=== PATIENT | male | born 1940 | race Caucasian/White ===

== ENCOUNTER 2022-05-12 17:34 | Inpatient (IN) | payer MEDICARE ==
[2022-05-12 18:43] VITALS: BMI 27.0
[2022-05-12] MEDS ORDERED: Nitroglycerin 0.4 MG TAB (25 Tab Bottle) SL PRN (19:53)
[2022-05-12] MEDS ORDERED: Acetaminophen 325 MG TAB PO PRN (19:59)
[2022-05-12] MEDS ORDERED: Lisinopril 10 MG TAB PO SCH (20:00)
[2022-05-12] MEDS ORDERED: Nitroglycerin 2% Ointment 1 INCH/1 GM Packet TOP SCH (20:15)
[2022-05-12] MEDS: Apixaban 2.5 MG TAB PO SCH (20:32)
[2022-05-12] MEDS: hydrOXYzine Pamoate 25 mg Capsule PO SCH (20:38)
[2022-05-12] MEDS ORDERED: Dutasteride 0.5 MG CAP PO SCH (21:00)
[2022-05-12] MEDS ORDERED: Atorvastatin Calcium 20 MG TAB PO SCH (21:00)
[2022-05-12 21:20] LABS: Magnesium 1.9 mg/dL (1.6-2.6)
[2022-05-12 21:26] LABS: Troponin I 0.267 ng/mL (< 0.028)
[2022-05-12] MEDS: Sotalol HCl 80 MG TAB PO SCH ×2 (21:28→21:29)
[2022-05-12 23:44] LABS: Troponin I 0.231 ng/mL (< 0.028)
[2022-05-13 04:43] LABS: Anion Gap 12 mmol/L (10-20); BUN (Urea Nitrogen) 23 mg/dL (8.4-25.7); Calc. Creatinine Clearance 71 mL/min (70-130); Carbon Dioxide 25 mmol/L (23-31); Cardiac Risk 2.4 (Less than 4.5); Chloride 107 mmol/L (98-107); Cholesterol 91 mg/dl (< 200 Desired); Estimated GFR 71; Glucose 79 mg/dL (83-110); HDL Cholesterol 38 mg/dL (>60 Neg Risk); LDL Cholesterol, Calculated 41 mg/dL; Potassium 4.2 mmol/L (3.5-5.1); Sodium 140 mmol/L (136-145); Triglycerides 59 mg/dL (Less than 150)
[2022-05-13 04:45] LABS: #Basophils 0.1 10x3/uL (0.0-0.2); #Eosinphils 0.1 10x3/uL (0.0-0.5); #Monocytes 0.7 10x3/uL (0.0-1.1); #Neutrophils 2.2 10x3/uL (1.5-8.4); %Eosinophils 2.5 % (0.0-6.0); %Lymphocytes 39.9 % (18.0-47.0); %Monocytes 13.4 % (0.0-10.0); Hemoglobin 13.2 g/dL (13.5-17.5); Mean Corpuscular HGB CONC 32.5 g/dL (32.0-36.0); Mean Corpuscular Hemoglobin 30.5 pg (27.0-33.0); Mean Corpuscular Volume 93.8 fl (81.2-95.1); Mean Platelet Volume 10.1 fl (7.4-10.4); Platelet Count 132 10x3/uL (150-450); RBC Distribution Width 12.4 % (11.5-14.5); Red Blood Cell (RBC) Count 4.33 10x6/uL (4.32-5.72); White Blood Cell (WBC) Count 5.1 10x3/uL (3.5-10.5)
[2022-05-13] MEDS: Nitroglycerin 2% Ointment 1 INCH/1 GM Packet TOP SCH ×2 (05:57→16:43)
[2022-05-13] MEDS ORDERED: Polyethylene Glycol 3350 17 GM Packet PO SCH (09:00)
[2022-05-13] MEDS ORDERED: Lisinopril 10 MG TAB PO SCH (09:00)
[2022-05-13] MEDS ORDERED: Aspirin Chewable 81 MG TAB PO SCH (09:00)
[2022-05-13] MEDS: Sotalol HCl 80 MG TAB PO SCH ×3 (10:15→10:18)
[2022-05-13] MEDS: Apixaban 2.5 MG TAB PO SCH (10:17)
[2022-05-13] MEDS: hydrOXYzine Pamoate 25 mg Capsule PO SCH (10:21)
[2022-05-13 13:04] LABS: Hemoglobin A1c 6.1 % (4.0-6.0)
[2022-05-13 17:26] VITALS: BP 125/73; TEMP 97.5
[2022-05-13] MEDS ORDERED: Atorvastatin Calcium 40 MG TAB PO SCH (21:00)
== END 2022-05-13 18:00 | disposition home or self-care (01) | DRG 282 ==
LOC: CSHTELE 17:34 → OBSVTOIN 19:43
PROVIDERS: ADMIT Internal Medicine; ATTEND Internal Medicine
DX: R00.0 Tachycardia, unspecified (principal); I21.A1 Myocardial infarction type 2; Z20.822 Contact with and (suspected) exposure to COVID-19; I25.10 Atherosclerotic heart disease of native coronary artery without angina pectoris; I48.91 Unspecified atrial fibrillation; E78.5 Hyperlipidemia, unspecified; I10 Essential (primary) hypertension; R73.03 Prediabetes; K21.9 Gastro-esophageal reflux disease without esophagitis; N40.0 Benign prostatic hyperplasia without lower urinary tract symptoms; Z95.0 Presence of cardiac pacemaker; Z95.1 Presence of aortocoronary bypass graft; Z95.5 Presence of coronary angioplasty implant and graft; Z88.2 Allergy status to sulfonamides; Z88.8 Allergy status to other drugs, medicaments and biological substances; Z79.899 Other long term (current) drug therapy; I25.2 Old myocardial infarction; Z98.49 Cataract extraction status, unspecified eye; Z87.891 Personal history of nicotine dependence; Z80.3 Family history of malignant neoplasm of breast; Z80.1 Family history of malignant neoplasm of trachea, bronchus and lung
CPT/HCPCS: 36415; 80048; 80061; 83036; 83735; 85025; 93005; 93010; 93306; 97139; Q0177; U0003; U0005

== ENCOUNTER 2022-05-27 11:47 | Inpatient (IN) | payer MEDICARE ==
[2022-05-27] MEDS ORDERED: Nitroglycerin 2% Ointment 1 INCH/1 GM Packet ONE (12:39)
[2022-05-27 13:26] LABS: CKMB 2.3 ng/mL (0-6.6)
[2022-05-27 15:50] LABS: Troponin I 0.044 ng/mL (< 0.028)
[2022-05-27] MEDS ORDERED: Ondansetron ODT 4 MG TAB PO PRN (16:04)
[2022-05-27 17:53] VITALS: BMI 27.7
[2022-05-27 19:05] LABS: Troponin I 0.044 ng/mL (< 0.028)
[2022-05-27] MEDS: Acetaminophen 325 MG TAB PO PRN (21:46)
[2022-05-28 04:49] LABS: #Basophils 0.1 10x3/uL (0.0-0.2); #Eosinphils 0.2 10x3/uL (0.0-0.5); #Monocytes 0.9 10x3/uL (0.0-1.1); %Eosinophils 2.1 % (0.0-6.0); %Lymphocytes 27.6 % (18.0-47.0); %Monocytes 12.5 % (0.0-10.0); %Neutrophils 56.7 % (40.0-75.0); Hemoglobin 12.9 g/dL (13.5-17.5); Mean Corpuscular HGB CONC 32.7 g/dL (32.0-36.0); Mean Corpuscular Hemoglobin 30.8 pg (27.0-33.0); Mean Corpuscular Volume 94.3 fl (81.2-95.1); Mean Platelet Volume 10.3 fl (7.4-10.4); Platelet Count 170 10x3/uL (150-450); RBC Distribution Width 12.6 % (11.5-14.5); Red Blood Cell (RBC) Count 4.19 10x6/uL (4.32-5.72); White Blood Cell (WBC) Count 7.1 10x3/uL (3.5-10.5)
[2022-05-28 04:56] LABS: ALT (SGPT) 12 U/L (8-55); AST (SGOT) 15 U/L (5-34); Albumin 3.3 g/dL (3.4-4.8); Alkaline Phosphatase 70 U/L (40-110); Anion Gap 13 mmol/L (10-20); BUN (Urea Nitrogen) 23 mg/dL (8.4-25.7); Bilirubin, Total 1.2 mg/dL (0.2-1.2); Calc. Creatinine Clearance 66 mL/min (70-130); Calcium 9.1 mg/dL (7.8-10.44); Carbon Dioxide 26 mmol/L (23-31); Chloride 106 mmol/L (98-107); Estimated GFR 62; Globulin 2.8 g/dL (2.4-3.5); Glucose 90 mg/dL (83-110); Potassium 4.8 mmol/L (3.5-5.1); Protein, Total 6.1 g/dL (5.8-8.1); Sodium 140 mmol/L (136-145)
[2022-05-28] MEDS: Acetaminophen 325 MG TAB PO PRN ×2 (05:56→09:34)
[2022-05-28] MEDS: Furosemide 20 MG/2 ML VIAL SLOW IVP SCH ×2 (05:58→13:40)
[2022-05-28] MEDS ORDERED: Carvedilol 6.25 MG TAB PO SCH (09:00)
[2022-05-28] MEDS: Aspirin Chewable 81 MG TAB PO SCH (09:34)
[2022-05-28] MEDS ORDERED: Apixaban 5 MG TAB PO SCH (10:30)
[2022-05-28] MEDS ORDERED: Sotalol HCl 80 MG TAB PO SCH ×2 (10:30→21:00)
[2022-05-28] MEDS ORDERED: Digoxin 0.125 MG TAB PO SCH (12:00)
[2022-05-28 17:06] LABS: Hemoglobin A1c 6.2 % (4.0-6.0)
[2022-05-28] MEDS: Carvedilol 6.25 MG TAB PO SCH (17:21)
[2022-05-28] MEDS: Sotalol HCl 80 MG TAB PO SCH (20:15)
[2022-05-28] MEDS: Apixaban 5 MG TAB PO SCH (20:16)
[2022-05-29 05:00] LABS: #Basophils 0.1 10x3/uL (0.0-0.2); #Eosinphils 0.1 10x3/uL (0.0-0.5); #Monocytes 0.9 10x3/uL (0.0-1.1); #Neutrophils 3.5 10x3/uL (1.5-8.4); %Basophils 0.8 % (0.0-2.0); %Eosinophils 2.2 % (0.0-6.0); %Lymphocytes 27.4 % (18.0-47.0); %Monocytes 13.9 % (0.0-10.0); %Neutrophils 55.4 % (40.0-75.0); Mean Corpuscular HGB CONC 33.3 g/dL (32.0-36.0); Mean Corpuscular Hemoglobin 30.8 pg (27.0-33.0); Mean Corpuscular Volume 92.5 fl (81.2-95.1); Mean Platelet Volume 10.3 fl (7.4-10.4); Platelet Count 160 10x3/uL (150-450); RBC Distribution Width 12.7 % (11.5-14.5); Red Blood Cell (RBC) Count 4.55 10x6/uL (4.32-5.72); White Blood Cell (WBC) Count 6.4 10x3/uL (3.5-10.5)
[2022-05-29 05:12] LABS: ALT (SGPT) 10 U/L (8-55); AST (SGOT) 14 U/L (5-34); Albumin 3.3 g/dL (3.4-4.8); Alkaline Phosphatase 71 U/L (40-110); Anion Gap 15 mmol/L (10-20); BUN (Urea Nitrogen) 24 mg/dL (8.4-25.7); Bilirubin, Total 0.9 mg/dL (0.2-1.2); Calc. Creatinine Clearance 63 mL/min (70-130); Carbon Dioxide 24 mmol/L (23-31); Chloride 104 mmol/L (98-107); Estimated GFR 73; Glucose 92 mg/dL (83-110); Magnesium 1.9 mg/dL (1.6-2.6); Potassium 3.9 mmol/L (3.5-5.1); Protein, Total 6.3 g/dL (5.8-8.1); Sodium 139 mmol/L (136-145)
[2022-05-29] MEDS: Furosemide 20 MG/2 ML VIAL SLOW IVP SCH ×2 (05:38→13:07)
[2022-05-29] MEDS: Digoxin 0.125 MG TAB PO SCH (08:19)
[2022-05-29] MEDS: Carvedilol 6.25 MG TAB PO SCH ×2 (08:19→17:44)
[2022-05-29] MEDS: Apixaban 5 MG TAB PO SCH ×2 (08:19→20:25)
[2022-05-29] MEDS: Aspirin Chewable 81 MG TAB PO SCH (08:20)
[2022-05-29] MEDS: Sotalol HCl 80 MG TAB PO SCH ×2 (08:20→20:27)
[2022-05-29] MEDS: Ivabradine 5 MG TAB PO SCH ×2 (10:43→20:27)
[2022-05-30 04:44] LABS: #Basophils 0.1 10x3/uL (0.0-0.2); #Eosinphils 0.2 10x3/uL (0.0-0.5); #Monocytes 0.9 10x3/uL (0.0-1.1); #Neutrophils 3.3 10x3/uL (1.5-8.4); %Basophils 0.9 % (0.0-2.0); %Eosinophils 2.7 % (0.0-6.0); %Lymphocytes 30.8 % (18.0-47.0); %Monocytes 13.5 % (0.0-10.0); %Neutrophils 51.9 % (40.0-75.0); Hemoglobin 14.6 g/dL (13.5-17.5); Mean Corpuscular HGB CONC 32.7 g/dL (32.0-36.0); Mean Corpuscular Hemoglobin 30.5 pg (27.0-33.0); Mean Corpuscular Volume 93.3 fl (81.2-95.1); Mean Platelet Volume 10.4 fl (7.4-10.4); Platelet Count 191 10x3/uL (150-450); RBC Distribution Width 12.5 % (11.5-14.5); Red Blood Cell (RBC) Count 4.79 10x6/uL (4.32-5.72); White Blood Cell (WBC) Count 6.4 10x3/uL (3.5-10.5)
[2022-05-30 05:14] LABS: ALT (SGPT) 11 U/L (8-55); AST (SGOT) 17 U/L (5-34); Albumin 3.4 g/dL (3.4-4.8); Alkaline Phosphatase 68 U/L (40-110); Anion Gap 15 mmol/L (10-20); BUN (Urea Nitrogen) 31 mg/dL (8.4-25.7); Bilirubin, Total 0.7 mg/dL (0.2-1.2); Calc. Creatinine Clearance 56 mL/min (70-130); Calcium 9.3 mg/dL (7.8-10.44); Carbon Dioxide 27 mmol/L (23-31); Chloride 101 mmol/L (98-107); Estimated GFR 64; Globulin 3.4 g/dL (2.4-3.5); Glucose 95 mg/dL (83-110); Protein, Total 6.8 g/dL (5.8-8.1); Sodium 139 mmol/L (136-145)
[2022-05-30] MEDS: Furosemide 20 MG/2 ML VIAL SLOW IVP SCH (05:25)
[2022-05-30] MEDS: Carvedilol 6.25 MG TAB PO SCH (08:39)
[2022-05-30] MEDS: Sotalol HCl 80 MG TAB PO SCH ×2 (08:39→20:23)
[2022-05-30] MEDS: Digoxin 0.125 MG TAB PO SCH (08:39)
[2022-05-30] MEDS: Aspirin Chewable 81 MG TAB PO SCH (08:39)
[2022-05-30] MEDS: Apixaban 5 MG TAB PO SCH (08:40)
[2022-05-30] MEDS: Ivabradine 5 MG TAB PO SCH ×2 (08:40→20:24)
[2022-05-30] MEDS: Carvedilol 12.5 MG TAB PO SCH (18:14)
[2022-05-30 18:35] LABS: Bilirubin Neg (Negative); Blood, Urine 250 (Negative); Clarity Clear (Clear); Glucose, Urine (Dipstick) Normal (Negative); Ketone, Urine Negative (Negative); Leukocyte 100 (Negative); Nitrite Negative (Negative); Protein, Urine (Dipstick) 30 mg/dl (Neg-Trace); Specific Gravity, Urine 1.025 (1.002-1.036)
[2022-05-30 18:49] LABS: Bacteria/HPF None Seen HPF (None Seen); RBC/HPF 0-3 HPF (0-3); Squamous Epithelial 0-3 HPF (0-3); WBC/HPF 0-3 HPF (0-3)
[2022-05-30] MEDS ORDERED: Aspirin Chewable 81 MG TAB PO SCH (20:45)
[2022-05-31 04:21] LABS: Hemoglobin 14.4 g/dL (13.5-17.5); Mean Corpuscular HGB CONC 32.9 g/dL (32.0-36.0); Mean Corpuscular Hemoglobin 30.5 pg (27.0-33.0); Mean Corpuscular Volume 92.8 fl (81.2-95.1); Mean Platelet Volume 9.7 fl (7.4-10.4); Platelet Count 184 10x3/uL (150-450); RBC Distribution Width 12.6 % (11.5-14.5); Red Blood Cell (RBC) Count 4.72 10x6/uL (4.32-5.72); White Blood Cell (WBC) Count 6.4 10x3/uL (3.5-10.5)
[2022-05-31 05:04] LABS: ALT (SGPT) 14 U/L (8-55); AST (SGOT) 17 U/L (5-34); Albumin 3.4 g/dL (3.4-4.8); Alkaline Phosphatase 69 U/L (40-110); Anion Gap 15 mmol/L (10-20); BUN (Urea Nitrogen) 41 mg/dL (8.4-25.7); Bilirubin, Total 0.6 mg/dL (0.2-1.2); Calc. Creatinine Clearance 45 mL/min (70-130); Calcium 9.4 mg/dL (7.8-10.44); Carbon Dioxide 27 mmol/L (23-31); Chloride 101 mmol/L (98-107); Estimated GFR 49; Globulin 3.2 g/dL (2.4-3.5); Glucose 102 mg/dL (83-110); Potassium 4.4 mmol/L (3.5-5.1); Protein, Total 6.6 g/dL (5.8-8.1); Sodium 139 mmol/L (136-145)
[2022-05-31 05:42] LABS: MDiff Complete? YES; Platelet Morphology Comment Appears Adequate
[2022-05-31 05:45] LABS: Band 3 % (5-11); Eosinophils 2 % (0-10); Lymphocytes 25 % (21-51); Monocytes 13 % (0-10); Neutrophil 49 % (42-75); Reactive Lymphocytes 6 % (0-10)
[2022-05-31] MEDS ORDERED: Furosemide 40 MG TAB PO SCH (07:30)
[2022-05-31] MEDS: Carvedilol 12.5 MG TAB PO SCH ×2 (10:28→17:08)
[2022-05-31] MEDS: Digoxin 0.125 MG TAB PO SCH (10:28)
[2022-05-31] MEDS: Sotalol HCl 80 MG TAB PO SCH ×2 (10:28→20:22)
[2022-05-31] MEDS: Ivabradine 5 MG TAB PO SCH ×2 (10:29→20:23)
[2022-05-31] MEDS ORDERED: Apixaban 5 MG TAB PO SCH ×2 (12:00→13:00)
[2022-05-31] MEDS: Apixaban 5 MG TAB PO SCH (20:23)
[2022-05-31] MEDS ORDERED: Dutasteride 0.5 MG CAP PO SCH (21:00)
[2022-06-01] MEDS ORDERED: Famotidine 20 MG TAB PO SCH (00:30)
[2022-06-01] MEDS ORDERED: Mag-Al Plus 1200 MG/1200 MG/120 MG/30 ML UDCUP PO SCH (00:30)
[2022-06-01 06:06] LABS: ALT (SGPT) 14 U/L (8-55); AST (SGOT) 18 U/L (5-34); Albumin 3.4 g/dL (3.4-4.8); Alkaline Phosphatase 73 U/L (40-110); Anion Gap 13 mmol/L (10-20); BUN (Urea Nitrogen) 35 mg/dL (8.4-25.7); Bilirubin, Total 0.6 mg/dL (0.2-1.2); Calc. Creatinine Clearance 57 mL/min (70-130); Calcium 9.2 mg/dL (7.8-10.44); Carbon Dioxide 26 mmol/L (23-31); Chloride 103 mmol/L (98-107); Estimated GFR 56; Glucose 96 mg/dL (83-110); Potassium 4.4 mmol/L (3.5-5.1); Protein, Total 6.4 g/dL (5.8-8.1); Sodium 138 mmol/L (136-145)
[2022-06-01] MEDS: Sotalol HCl 80 MG TAB PO SCH (06:13)
[2022-06-01] MEDS: Ivabradine 5 MG TAB PO SCH (06:13)
[2022-06-01] MEDS: Digoxin 0.125 MG TAB PO SCH (06:13)
[2022-06-01] MEDS: Carvedilol 12.5 MG TAB PO SCH (06:13)
[2022-06-01] MEDS: Apixaban 5 MG TAB PO SCH (06:13)
[2022-06-01 07:18] LABS: Hemoglobin 14.1 g/dL (13.5-17.5); Mean Corpuscular HGB CONC 32.6 g/dL (32.0-36.0); Mean Corpuscular Hemoglobin 30.9 pg (27.0-33.0); Mean Corpuscular Volume 94.5 fl (81.2-95.1); Mean Platelet Volume 10.1 fl (7.4-10.4); Platelet Count 187 10x3/uL (150-450); RBC Distribution Width 12.5 % (11.5-14.5); Red Blood Cell (RBC) Count 4.57 10x6/uL (4.32-5.72); White Blood Cell (WBC) Count 5.9 10x3/uL (3.5-10.5)
[2022-06-01] MEDS ORDERED: Lidocaine 1% PF 5 ML VIAL ONE (07:53)
[2022-06-01] MEDS ORDERED: PROPOFOL 20 ML ONE (07:53)
[2022-06-01 10:37] LABS: MDiff Complete? YES; Manual Diff?? YES
[2022-06-01 11:17] LABS: Band 1 % (5-11); Eosinophils 2 % (0-10); Lymphocytes 26 % (21-51); Monocytes 7 % (0-10); Neutrophil 54 % (42-75); Reactive Lymphocytes 8 % (0-10)
[2022-06-01 11:18] LABS: Platelet Morphology Comment Appears Adequate
[2022-06-01 11:50] VITALS: BP 96/66; TEMP 98
== END 2022-06-01 15:36 | disposition home or self-care (01) | DRG 291 ==
LOC: CSHERS 11:47 → INTOOBSV 13:45 → OBSVTOIN 13:45 → CSHERHOLD 13:45 → UNDOADMIN 13:45 → CSHTELE 17:37 → CSHERHOLD 17:37 → CSHTELE 05-29 09:03
PROVIDERS: ADMIT Hospitalist; ATTEND Family Medicine
PROC: 0T9B70Z Drainage of Bladder with Drainage Device, Via Natural or Artificial Opening (ICD-10-PCS; principal; 2022-05-27)
PROC: 5A2204Z Restoration of Cardiac Rhythm, Single (ICD-10-PCS; 2022-06-01)
DX: I11.0 Hypertensive heart disease with heart failure (principal); I50.23 Acute on chronic systolic (congestive) heart failure; J96.01 Acute respiratory failure with hypoxia; I47.1 Supraventricular tachycardia; E87.2 Acidosis; I48.92 Unspecified atrial flutter; E78.5 Hyperlipidemia, unspecified; I25.10 Atherosclerotic heart disease of native coronary artery without angina pectoris; R33.9 Retention of urine, unspecified; I45.9 Conduction disorder, unspecified; E78.00 Pure hypercholesterolemia, unspecified; I48.0 Paroxysmal atrial fibrillation; I25.2 Old myocardial infarction; Z95.1 Presence of aortocoronary bypass graft; Z88.2 Allergy status to sulfonamides; Z86.718 Personal history of other venous thrombosis and embolism; Z95.0 Presence of cardiac pacemaker; Z88.8 Allergy status to other drugs, medicaments and biological substances; Z79.899 Other long term (current) drug therapy; Z79.01 Long term (current) use of anticoagulants; Z79.82 Long term (current) use of aspirin
CPT/HCPCS: 36415; 71045; 71275; 80053; 81001; 82553; 83036; 83735; 84443; 85025; 92960; 93005; 93010; 94760; 96374; 96376; G0378; J1940; J2704

== ENCOUNTER 2022-06-14 11:55 | Outpatient (CLI) | payer MEDICARE ==
[2022-06-14 13:01] LABS: Hemoglobin 14.2 g/dL (13.5-17.5); Mean Corpuscular HGB CONC 32.1 g/dL (32.0-36.0); Mean Corpuscular Hemoglobin 30.7 pg (27.0-33.0); Mean Corpuscular Volume 95.7 fl (81.2-95.1); Mean Platelet Volume 10.4 fl (7.4-10.4); Platelet Count 177 10x3/uL (150-450); RBC Distribution Width 12.1 % (11.5-14.5); Red Blood Cell (RBC) Count 4.62 10x6/uL (4.32-5.72); White Blood Cell (WBC) Count 6.9 10x3/uL (3.5-10.5)
[2022-06-14 13:26] LABS: INR-International Normal Ratio 1.1; PTT 29.8 sec (22.0-33.0); Prothrombin Time 11.7 sec (9.5-12.1)
[2022-06-14 13:36] LABS: Anion Gap 12 mmol/L (10-20); BUN (Urea Nitrogen) 28 mg/dL (8.4-25.7); Calc. Creatinine Clearance 0 mL/min (70-130); Calcium 9.7 mg/dL (7.8-10.44); Carbon Dioxide 28 mmol/L (23-31); Chloride 105 mmol/L (98-107); Estimated GFR 54; Glucose 89 mg/dL (83-110); Potassium 5.1 mmol/L (3.5-5.1); Sodium 140 mmol/L (136-145)
== END 2022-06-14 11:56 | disposition home or self-care (01) ==
LOC: CSHLAB 11:55
PROVIDERS: ATTEND Specialist
DX: Z01.812 Encounter for preprocedural laboratory examination (principal); Z20.822 Contact with and (suspected) exposure to COVID-19; R94.39 Abnormal result of other cardiovascular function study
CPT/HCPCS: 80048; 85027; 85610; 85730; 87811

== ENCOUNTER → 2022-06-17 | Day surgery (SDC) | payer MEDICARE ==
[~2022-06-17] MED LIST: Adenosine 6 MG/2 ML VIAL ONE; Ascorbic Acid 500 mg Chewable Tablet ONE; Aspirin 325 MG TAB ONE; Fentanyl 100 MCG/2 ML VIAL ONE; Heparin 10,000 UNITS/ 10 ML VIAL ONE; Iopamidol 300 61% 100 ML VIAL FS ONE; Lidocaine 1% 20 ML MDV ONE; Midazolam HCl 2 mg/2 ml Vial ONE; Nitroglycerin 50 MG/250 ML BOT 250 ML ONE; Sodium Chloride 0.9% 1,000 ML ONE
== END ==
LOC: CSHSDC 06-14 11:31
PROVIDERS: ATTEND Specialist
DX: I25.10 Atherosclerotic heart disease of native coronary artery without angina pectoris (principal); I11.0 Hypertensive heart disease with heart failure; I50.42 Chronic combined systolic (congestive) and diastolic (congestive) heart failure; I42.9 Cardiomyopathy, unspecified; Z95.5 Presence of coronary angioplasty implant and graft; Z95.1 Presence of aortocoronary bypass graft
CPT/HCPCS: 93459; C1769; 99152; 99153; J0153; J1644; J2250; J3010; J7050; Q9967

== ENCOUNTER 2025-09-10 10:48 | Observation (INO) | payer MEDICARE ==
[2025-09-10] MEDS ORDERED: Nitroglycerin 2% Ointment 1 INCH/1 GM Packet ONE (11:06)
[2025-09-10 11:56] LABS: #Basophils 0.04 10x3/uL (0.0-0.2); #Eosinophils 0.06 10x3/uL (0.0-0.5); #Monocytes 0.56 10x3/uL (0.0-1.1); #Neutrophils 4.70 10x3/uL (1.5-8.4); %Basophils 0.6 % (0.0-2.0); %Eosinophils 0.9 % (0.0-6.0); %Lymphocytes 20.9 % (18.0-47.0); %Monocytes 8.2 % (0.0-10.0); %Neutrophils 69.1 % (40.0-75.0); Hematocrit 40.7 % (38.8-50.0); Hemoglobin 12.2 g/dL (13.5-17.5); Mean Corpuscular Hemoglobin 27.5 pg (27.0-33.0); Mean Corpuscular Volume 91.7 fL (81.2-95.1); Platelet Count 213 10x3/uL (150-450); Red Blood Cell (RBC) Count 4.44 10x6/uL (4.32-5.72); White Blood Cell (WBC) Count 6.80 10x3/uL (3.5-10.5)
[2025-09-10 12:32] LABS: ALT (SGPT) 13 U/L (Less than 45); AST (SGOT) 18 U/L (11-34); Albumin 3.7 g/dL (3.1-4.5); Alkaline Phosphatase 87 U/L (40-110); Anion Gap 14 mmol/L (10-20); BUN (Urea Nitrogen) 26 mg/dL (8.4-25.7); Bilirubin, Total 1.6 mg/dL (0.3-1.2); Calc. Creatinine Clearance 0 mL/min (70-130); Calcium 8.8 mg/dL (7.8-10.44); Carbon Dioxide 23 mmol/L (23-31); Chloride 108 mmol/L (98-107); Globulin 3.4 g/dL (2.4-3.5); Glucose 147 mg/dL (83-110); Potassium 4.9 mmol/L (3.5-5.1); Sodium 140 mmol/L (136-145); Troponin I 0.021 ng/mL (< 0.028)
[2025-09-10] MEDS ORDERED: Furosemide 40 MG (4 mL) VIAL ONE (13:09)
[2025-09-10 15:21] VITALS: BMI 24.2
[2025-09-10] MEDS: Carvedilol 12.5 MG TAB PO SCH (20:20)
[2025-09-10] MEDS: Apixaban 5 MG TAB PO SCH (20:20)
[2025-09-11] MEDS: Acetaminophen 325 MG TAB PO PRN (02:05)
[2025-09-11 04:37] LABS: #Basophils 0.04 10x3/uL (0.0-0.2); #Eosinophils 0.10 10x3/uL (0.0-0.5); #Monocytes 0.76 10x3/uL (0.0-1.1); #Neutrophils 4.17 10x3/uL (1.5-8.4); %Basophils 0.6 % (0.0-2.0); %Eosinophils 1.5 % (0.0-6.0); %Lymphocytes 21.2 % (18.0-47.0); %Monocytes 11.8 % (0.0-10.0); %Neutrophils 64.6 % (40.0-75.0); Hematocrit 35.5 % (38.8-50.0); Hemoglobin 10.8 g/dL (13.5-17.5); Mean Corpuscular Hemoglobin 27.3 pg (27.0-33.0); Mean Corpuscular Volume 89.9 fL (81.2-95.1); Platelet Count 176 10x3/uL (150-450); Red Blood Cell (RBC) Count 3.95 10x6/uL (4.32-5.72); White Blood Cell (WBC) Count 6.46 10x3/uL (3.5-10.5)
[2025-09-11 04:52] LABS: Anion Gap 11 mmol/L (10-20); BUN (Urea Nitrogen) 30 mg/dL (8.4-25.7); Calc. Creatinine Clearance 52 mL/min (70-130); Calcium 8.6 mg/dL (7.8-10.44); Carbon Dioxide 27 mmol/L (23-31); Cardiac Risk 1.9 (Less than 4.5); Chloride 107 mmol/L (98-107); Cholesterol 81 mg/dl (< 200 Desired); Glucose 97 mg/dL (83-110); HDL Cholesterol 43 mg/dL (>60 Neg Risk); LDL Cholesterol, Calculated 29 mg/dL; Potassium 4.0 mmol/L (3.5-5.1); Sodium 141 mmol/L (136-145); Triglycerides 45 mg/dL (Less than 150)
[2025-09-11] MEDS: Furosemide 40 MG (4 mL) VIAL SLOW IVP SCH (06:37)
[2025-09-11] MEDS: Digoxin 0.125 MG TAB PO SCH (10:03)
[2025-09-11] MEDS: Pantoprazole 40 MG DR.TAB PO SCH (10:03)
[2025-09-11 13:05] VITALS: BP 137/71; TEMP 97
[2025-09-11 17:03] LABS: Digoxin 0.92 ng/mL (0.8-2.0)
== END 2025-09-11 15:00 | disposition home or self-care (01) ==
LOC: CSHERS 10:48 → CSHTELE 13:32
PROVIDERS: ADMIT Student in an Organized Health Care Education/Training Program; ATTEND Student in an Organized Health Care Education/Training Program
PROC: B24BZZZ Ultrasonography of Heart with Aorta (ICD-10-PCS; principal; 2025-09-11)
DX: I11.0 Hypertensive heart disease with heart failure (principal); I50.22 Chronic systolic (congestive) heart failure; I48.91 Unspecified atrial fibrillation; I25.10 Atherosclerotic heart disease of native coronary artery without angina pectoris; K21.9 Gastro-esophageal reflux disease without esophagitis; R73.9 Hyperglycemia, unspecified; Z86.718 Personal history of other venous thrombosis and embolism; Z95.1 Presence of aortocoronary bypass graft; Z88.2 Allergy status to sulfonamides; Z88.8 Allergy status to other drugs, medicaments and biological substances; Z79.01 Long term (current) use of anticoagulants; Z79.899 Other long term (current) drug therapy
CPT/HCPCS: 71045; 80048; 80053; 80061; 80162; 83036; 83880; 84443; 84484; 85025 ×2; 93005; 93306; 94760 ×2; 94762; 96374; 99285; J1940 ×2; 36415